=== PATIENT | female | born 1940 | race Caucasian/White ===

== ENCOUNTER 2017-11-05 09:35 | Outpatient (CLI) | payer OTHER, BC ==
[~2017-11-05 09:35] MED LIST: ALEN35TA12 PO; COR25 PO; LOSA100T11 PO; SERT50TA12 PO
[2017-11-05] MEDS ORDERED: IOHEXOL 50 ML IV ONE (10:12)
[2017-11-05] MEDS ORDERED: NS 50 ML IV ONE (10:13)
[2017-11-05] MEDS ORDERED: LIDOCAINE 1%, 20 ML MDV 20 ML ONE (10:13)
== END 2017-11-05 22:21 | disposition home or self-care (01) ==
LOC: SCT 09:35
PROVIDERS: ATTEND Orthopaedic Surgery
PROC: BW1CYZZ Fluoroscopy of Lower Extremity using Other Contrast (ICD-10-PCS; principal; 2017-11-05)
PROC: BQ27YZZ Computerized Tomography (CT Scan) of Right Knee using Other Contrast (ICD-10-PCS; 2017-11-05)
DX: M25.561 Pain in right knee (principal); Z95.0 Presence of cardiac pacemaker
CPT/HCPCS: 27370; 73580; 73700; J2001; Q9967

== ENCOUNTER 2023-06-30 08:38 | Inpatient (IN) | payer BC, OTHER ==
[~2023-06-30] VITALS: Ht 152.4 cm; Wt 63.0 kg
[2023-06-30 08:38] VITALS: BP_SYST 143; PULSE 102; RESP 17; TEMP 97.3; O2SAT 99
[~2023-06-30 08:38] MED LIST changes: -LOSA100T11 PO; +LOSA100T4 PO; +SERT-436 PO; -SERT50TA12 PO
[2023-06-30 09:14] LABS: BASOPHILS # (AUTO) 0.1 K/uL (0.0-0.2); EOSINOPHILS # (AUTO) 0.3 K/uL (0.0-0.4); EOSINOPHILS % (AUTO) 5.7 % (0.0-4.0); HEMATOCRIT 38.7 % (36-48); HEMOGLOBIN 12.5 g/dL (12.0-16.0); LYMPHOCYTES # (AUTO) 1.4 K/uL (1.0-5.5); LYMPHOCYTES % (AUTO) 24.8 % (20.5-51.5); MEAN CORPUSCULAR HEMOGLOBIN 29 pg (27-31); MEAN CORPUSCULAR HGB CONC 32 % (32-36); MEAN CORPUSCULAR VOLUME 91 fL (79.0-98.0); MONOCYTES # (AUTO) 0.3 K/uL (0.0-1.0); MONOCYTES % (AUTO) 6.1 % (1.7-9.3); NEUTROPHILS # (AUTO) 3.5 K/uL (1.8-7.7); NEUTROPHILS % (AUTO) 62.4 % (40.0-70.0); PLATELET COUNT (AUTO) 212 K/uL (130-430); RED BLOOD CELL COUNT(AUTO) 4.26 MIL/uL (4.2-6.2); RED CELL DISTRIBUTION WIDTH 13.9 % (9.0-15.0); WHITE BLOOD COUNT (AUTO) 5.6 K/uL (4.8-10.8)
[2023-06-30 09:29] LABS: ANION GAP 7 (5-15); CALCIUM 8.5 mg/dL (8.4-11.0); CARBON DIOXIDE 29 mmol/L (23-29); CHLORIDE 99 mmol/L (98-107); GLUCOSE 124 mg/dL (74-106); POTASSIUM 3.9 mmol/L (3.5-5.1); SODIUM SERUM 135 mmol/L (136-145); UREA NITROGEN, BLOOD 17 mg/dL (8-21)
[2023-06-30 09:36] LABS: ALANINE AMINOTRANSFERASE 13 U/L (12-78); ALBUMIN 3.6 g/dL (3.4-4.8); ASPARTATE AMINOTRANSFERASE 18 U/L (10-37); TOTAL BILIRUBIN 0.4 mg/dL (0.0-1.0); TOTAL PROTEIN, SERUM 6.9 g/dL (6.4-8.3)
[2023-06-30 09:48] LABS: BILIRUBIN,URINE NEGATIVE (NEGATIVE); BLOOD, URINE TRACE (NEGATIVE); CLARITY/URINE SLIGHTLY CLOUDY (CLEAR); GLUCOSE,URINE NEGATIVE (NEGATIVE); KETONES,URINE NEGATIVE (NEGATIVE); LEUKOCYTE ESTERASE ,URINE NEGATIVE (NEGATIVE); NITRITE, URINE NEGATIVE (NEGATIVE); PH,URINE 8.5 (5.0-8.0); PROTEIN URINE NEGATIVE (NEGATIVE); UROBILINOGEN,URINE 0.2 (0.2-1.0)
[2023-06-30 09:49] LABS: BACTERIA,URINE RARE /HPF (None Seen); COLOR,URINE YELLOW (YELLOW); URINE AMORPHOUS PHOSPHATES 3+ /HPF (None Seen); WBC,URINE 0-3 /HPF (0-3)
[2023-06-30] MEDS ORDERED: LIP20 PO (12:55)
[2023-06-30] MEDS ORDERED: HYDR-4037 PO (12:55)
[2023-06-30] MEDS ORDERED: NIFE20CA PO (12:55)
[2023-06-30] MEDS ORDERED: PANT20TA2 PO (12:55)
[2023-06-30] MEDS ORDERED: ASPIRIN 81 MG TAB.CHEW PO ONE (14:00)
[2023-06-30 15:13] VITALS: BP_SYST 146; PULSE 64; RESP 18; TEMP 98.6
[2023-06-30] MEDS ORDERED: ACETAMINOPHEN 325 MG TABLET PO PRN ×2 (17:15)
[2023-06-30] MEDS ORDERED: MAGNESIUM SULFATE 50 ML IV PRN (17:15)
[2023-06-30] MEDS ORDERED: POTASSIUM CHLORIDE 20 MEQ TAB.PRT.SR PO PRN (17:15)
[2023-06-30] MEDS ORDERED: LORazepam 2 MG/ML VIAL IVP PRN (17:15)
[2023-06-30] MEDS ORDERED: ZOLPIDEM TARTRATE 5 MG TABLET PO PRN (17:15)
[2023-06-30] MEDS ORDERED: MUPIROCIN 2% TOPICAL OINTMENT 22 GM NS PRN (17:15)
[2023-06-30] MEDS ORDERED: DOCUSATE SODIUM 100 MG CAPSULE PO PRN (17:15)
[2023-06-30] MEDS ORDERED: ONDANSETRON HCL 4 MG/2 ML VIAL IVP PRN (17:15)
[2023-06-30] MEDS ORDERED: NACL 0.9% 1,000 ML IV SCH ×2 (17:15→17:45)
[2023-06-30 19:30] VITALS: O2SAT 94
[2023-06-30 20:00] VITALS: BP_SYST 153; PULSE 64; RESP 18; TEMP 98.6; O2SAT 93
[2023-06-30] MEDS ORDERED: NIFEDIPINE 30 MG PO SCH (21:00)
[2023-06-30] MEDS ORDERED: ENOXAPARIN SODIUM 30 MG/0.3 ML SYRINGE SUBCUT SCH (21:00)
[2023-06-30] MEDS ORDERED: ATORVASTATIN 20 MG TABLET PO SCH (21:00)
[2023-06-30] MEDS: NIFEdipine 30 MG TAB.ER.24 PO SCH (21:07)
[2023-06-30] MEDS: CARVEDILOL 25 MG TABLET (COREG) PO SCH (21:08)
[2023-07-01 00:42] VITALS: BP_SYST 136; PULSE 62; RESP 16; TEMP 98.6; O2SAT 96
[2023-07-01 05:18] LABS: CHOLESTEROL 127 mg/dL (<200); HDL CHOLESTEROL 51 mg/dL (>55); TRIGLYCERIDES 94 mg/dL (30-150)
[2023-07-01 08:00] VITALS: BP_SYST 121; PULSE 62; RESP 18; TEMP 98.8; O2SAT 95; O2SAT 96
[2023-07-01] MEDS ORDERED: SERTRALINE HCL 50 MG TABLET PO SCH (09:00)
[2023-07-01] MEDS ORDERED: PANTOPRAZOLE SODIUM 40 MG TAB PO SCH (09:00)
[2023-07-01] MEDS: NIFEdipine 30 MG TAB.ER.24 PO SCH (09:37)
[2023-07-01] MEDS: CARVEDILOL 25 MG TABLET (COREG) PO SCH (09:40)
[2023-07-01 11:56] VITALS: BP_SYST 143; PULSE 62; RESP 17; TEMP 98.2; O2SAT 94
[2023-07-01 12:02] VITALS: BP_SYST 143; PULSE 60; RESP 18; TEMP 98.1; O2SAT 94
== END 2023-07-01 13:38 | disposition home or self-care (01) | DRG 312 ==
LOC: SED 08:38 → STU 12:41
PROVIDERS: ADMIT General Practice; ATTEND General Practice
DX: R55 Syncope and collapse (principal); E78.5 Hyperlipidemia, unspecified; I10 Essential (primary) hypertension; I25.10 Atherosclerotic heart disease of native coronary artery without angina pectoris; I49.9 Cardiac arrhythmia, unspecified; K59.09 Other constipation; F32.A Depression, unspecified; Z81.8 Family history of other mental and behavioral disorders; Z86.16 Personal history of COVID-19; Z87.891 Personal history of nicotine dependence; Z90.710 Acquired absence of both cervix and uterus; Z95.0 Presence of cardiac pacemaker; Z91.040 Latex allergy status
CPT/HCPCS: 36415; 71045; 80053; 80061; 81000; 84443; 84484; 85025; 93005; 93306; 97110-GP; 97116-GP; 97161-GP; 99285; G0378; J1650; J7030